=== PATIENT | male | born 1985 | race Caucasian/White ===

== ENCOUNTER 2022-11-15 11:06 | Emergency (ER) | payer BC, SELFPAY ==
[2022-11-15 11:20] VITALS: BP 134/81; PULSE 79; RESP 16; TEMP 36.9; O2SAT 100
--- NOTE | 2022-11-15 12:11 | ED.WOUNDLAC ---
HPI - Wound/Laceration General Chief Complaint: Wound/Laceration Stated Complaint: Laceration Left Eyebrow Source: patient and RN notes reviewed History of Present Illness HPI narrative: 37-year-old male presents to urgent care with a laceration above his left eyebrow. Patient states this morning he was walking any dark bathroom when he tripped, causing him to hit his left eyebrow on the medicine cabinet. Patient denies any LOC. Denies any headache, vomiting, neck pain, dizziness, or any other complaints. Patient is up-to-date on tetanus. Some parts of this dictation were generated by voice recognition software and may contain typographical and/or grammatical inaccuracies. Related Data Allergies Allergy/AdvReac Type Severity Reaction Status Date / Time No Known Allergies Allergy Verified 11/15/22 11:19 Review of Systems Review of Systems: Pertinent positives and pertinent negatives per HPI. PMFSH Comments At the time of my signature, I reviewed and agree with the nursing past medical, surgical, social, and family history. There is no relevant family history pertinent to the patient complaint. Exam Narrative: GENERAL: This is a well-nourished, well-developed patient, in no apparent distress. HEAD: normocephalic, atraumatic. EYES: PERRL. Sclera clear/white. Vision is grossly intact. EARS: External ears normal, auditory canals clear and without drainage, TMs normal without perforation. Hearing grossly intact. NOSE: External nose normal with no obvious nasal discharge, nares without redness, no rhinorrhea. THROAT: Mucous membranes moist, posterior pharynx clear. NECK: Neck supple, non-tender without lymphadenopathy, masses or thyromegaly. CARDIOVASCULAR: Regular rate. RESPIRATORY: no respiratory distress SKIN: warm, intact with no suspicious lesions or rash, good texture and turgor. 3.5 cm laceration above left eyebrow. NEURO: awake, alert, and oriented to person, place and time. There were no obvious focal neurologic abnormalities. Course Course Level of Care: Express Care Visit Vital Signs Vital signs: Vital Signs Temperature 98.4 F 11/15/22 11:20 Pulse Rate 79 11/15/22 11:20 Respiratory Rate 16 11/15/22 11:20 Blood Pressure 134/81 11/15/22 11:20 Pulse Oximetry 100 11/15/22 11:20 Oxygen Delivery Room Air 11/15/22 11:20 Temperature 98.4 F 11/15/22 11:20 Pulse Rate 79 11/15/22 11:20 Respiratory Rate 16 11/15/22 11:20 Blood Pressure 134/81 11/15/22 11:20 Pulse Oximetry 100 11/15/22 11:20 Oxygen Delivery Room Air 11/15/22 11:20 reviewed Procedures Laceration Laceration 1: Date: 11/15/22 Time: 11:55 Site: face Side (If applicable): left Size (cm): 3.5 Description: linear Depth: simple, single layer Local Anesthetic: lidocaine 1% Amount of anesthesia used (mL): 2 Pre-repair: wound explored and irrigated ====== Skin Level ====== Skin layer closed with: nylon Size (cm): 4-0 Number of sutures: 6 Technique: simple, interrupted ====== Subcutaneous Layer ====== ====== Muscle Layer ====== ====== Tendon Layer ====== Dressing: LACERATION REPAIR: The procedure was explained and verbal consent obtained. The area of the laceration was prepped with Technicare, sterile water and sterilely draped. The wound was anesthetized with 1% Lidocaine with local infiltration. The wound was thoroughly irrigated with 200cc and explored without evidence of foreign body, tendon injury or neurovascular injury. The wound was closed using 4.0 Ethilon. Wound edges were approximated with alignment using a single layer repair with interrupt stitches. Wound care instruction provide. The patient was advised to keep affect area clean and dry. Patient tolerated the procedure well without adverse effects MDM - Wound/Laceration MDM Narrative Medical decision making narrative
== END 2022-11-15 12:18 | disposition home or self-care (01) ==
PROVIDERS: Emergency Provider Nurse Practitioner Family
DX: S01.81XA Laceration without foreign body of other part of head, initial encounter (principal); W01.198A Fall on same level from slipping, tripping and stumbling with subsequent striking against other object, initial encounter
CPT/HCPCS: 12013; 99213; G0463